=== PATIENT | male | born 1960 | race African-American/Black ===

== ENCOUNTER 2017-03-16 16:23 | Inpatient (IN) | payer OTHER ==
[2017-03-16 17:39] VITALS: BMI 44.1
--- NOTE | 2017-03-16 19:16 | HP ---
Admission [facility] Chief Complaint: I WANT TO GO TO REHAB Allergies/Adverse Reactions: Allergies Allergy/AdvReac Type Severity Reaction Status Date / Time acetaminophen [From Tylenol] Allergy Verified 03/16/17 19:13 aspirin Allergy Verified 03/16/17 19:42 ibuprofen Allergy Verified 03/16/17 19:13 History of Present Illness: 57 YEARS OLD MALE WITH LONG HISTORY OF COCAINE DEPENDENCE, PATIENT DENIES ABUSE OPIOID, "MIXED IN COCAINE", HAS HYPERTENSION, ASTHMA POSITIVE PPD DENIES MENTAL ILLNESS IS ADMITTED TO REHAB PATIENT REPORTS THAT LEFT HIP AND LEFT LEG PAIN X 20+ YEARS, NO TREATMENT, DOES NOT TAKE PAIN KILLER MEDICATION REPORT GENERAL BODY ACHE FROM "UP AND RUNNING" X 2 WEEKS STRAIGHT Exam Limitations: No Limitations - Ebola screening Have you traveled outside of the country in the last 21 days: No (N) Have you had contact with anyone from an Ebola affected area: No Have you been sick,other than usual withdrawal symptoms: No Do you have a fever: No - Review of Systems Constitutional: No Symptoms Reported EENT: reports: Cataracts (RIGHT EYE 11/2016) Respiratory: reports: SOB with Exertion Cardiac: reports: No Symptoms Reported GI: reports: No Symptoms Reported : reports: No Symptoms Reported Musculoskeletal: reports: Back Pain, Joint Pain, Muscle Pain, Neck Pain (PAIN X 20 YEARS, "I DO NOT TAKE ANY MEDICATION FOR PAIN") Integumentary: reports: No Symptoms Reported Neuro: reports: No Symptoms reported Endocrine: reports: No Symptoms Reported Hematology: reports: No Symptoms Reported Psychiatric: reports: No Sypmtoms Reported, Judgement Intact, Mood/Affect Appropiate, Orientated x3 Other Systems: Reviewed and Negative Patient History - Patient Medical History Hx Anemia: No Hx Asthma: Yes Hx Chronic Obstructive Pulmonary Disease (COPD): No Hx Cancer: No Hx Cardiac Disorders: No Hx Congestive Heart Failure: No Hx Hypertension: Yes Hx Hypercholesterolemia: No Hx Pacemaker: No HX Cerebrovascular Accident: No Hx Seizures: No Hx Dementia: No Hx Diabetes: No Hx Gastrointestinal Disorders: No Hx Liver Disease: No Hx Genitourinary Disorders: No Hx Sexually Transmitted Disorders: No Hx Thyroid Disease: No Hx Human Immunodeficiency Virus (HIV): No Hx Hepatitis C: No Hx Depression: Yes Hx Suicide Attempt: Yes (37 YEARS OLD LEFT FOOT IN FRONT OF TRAIN) Hx Bipolar Disorder: No Hx Schizophrenia: No - Patient Surgical History Past Surgical History: Yes Hx Neurologic Surgery: No Hx Cataract Extraction: Yes (RIGHT EYE 11/2016) Hx Cardiac Surgery: No Hx Lung Surgery: No Hx Breast Surgery: No Hx Breast Biopsy: No Hx Abdominal Surgery: No Hx Appendectomy: No Hx Cholecystectomy: Yes (07/2016) Hx Genitourinary Surgery: No Hx Orthopedic Surgery: Yes (LEFT FOOT AGE 37, RIGHT KNEE) Anesthesia Reaction: No - PPD History Previous Implant?: Yes Documented Results: Positive w/o proof Implanted On Prior R Admission?: No PPD to be Administered?: No - Smoking Cessation Smoking history: Never smoked Have you smoked in the past 12 months: No Hx Chewing Tobacco Use: No Initiated information on smoking cessation: No - Substance & Tx. History Hx Alcohol Use: No Hx Substance Use: Yes Substance Use Type: Cocaine Hx Substance Use Treatment: No - Substances Abused Cocaine Route: Smoking Frequency: Daily Amount used: 500$ Age of first use: 32 Date of Last Use: 03/15/17 Family Disease History - Family Disease History Family Disease History: Other: Father (), Mother (ARTHRITIS) Admission Physical Exam [facility] - Vital Signs Vital Signs: Vital Signs - 24 hr 03/16/17 17:36 Temperature 97.7 F Pulse Rate 101 H Respiratory 20 Rate Blood Pressure 162/105 - Physical General Appearance: Yes: No Apparent Distress, Appropriately Dressed, Obese HEENTM: Yes: Hearing grossly Normal, Normal ENT Inspection, Normocephalic, Normal Voice Respiratory: Yes: Chest Non-Tender, Lungs Clear, Normal Breath Sounds, No Respiratory Distress, No Accessory Muscle Use Neck: Yes: Supple, Trachea in good position Breast: Yes: Breasts Symetrical Cardiology: Yes: Regular Rhythm, S1, S2, Tachycardia (I USED COCAINE BEFORE GOT HERE) Abdominal: Yes: Normal Bowel Sounds, Non Tender, Soft Genitourinary: Yes: Within Normal Limits Back: Yes: Normal Inspection Musculoskeletal: Yes: full range of Motion, Gait Steady, Back pain (X 20 YEARS) , Muscle Pain (JOINTS PAIN X 20 YEARS) Extremities: Yes: Normal Inspection, Normal Range of Motion, Non-Tender Neurological: Yes: Fully Oriented, Alert, Motor Strength 5/5, Normal Mood/Affect , Normal Response Integumentary: Yes: Warm Lymphatic: Yes: Within Normal Limits - Diagnostic (1) Cocaine dependence, uncomplicated Current Visit: Yes Status: Acute (2) Hypertension Current Visit: Yes Status: Chronic Qualifiers: Hypertension type: essential hypertension Qualified Code(s): I10 - Essential (primary) hypertension (3) 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
[2017-03-16] MEDS ORDERED: MENTHOL/PHENOL 1 EACH UD MM PRN (19:25)
[2017-03-16] MEDS ORDERED: LOPERAMIDE HCL 2 MG CAPSULE PO PRN (19:25)
[2017-03-16] MEDS ORDERED: MAGNESIUM HYDROX 2400MG/30ML ORAL SUSPENSION 30 ML CUP PO PRN (19:25)
[2017-03-16] MEDS ORDERED: MAGNESIUM CITRATE 300 ML BOTTLE PO PRN (19:25)
[2017-03-16] MEDS: amLODIPine BESYLATE 5 MG TABLET (FP) PO SCH (23:20)
[2017-03-16] MEDS: THIAMINE HCL 100 MG TABLET (FP) PO SCH (23:20)
[2017-03-16] MEDS: CLOPIDOGREL BISULFATE 75 MG TABLET (FP) PO SCH (23:20)
[2017-03-16] MEDS: ENALAPRIL MALEATE 10 MG TABLET (FP) PO SCH (23:20)
[2017-03-16] MEDS: HYDROCHLOROTHIAZIDE 25 MG TABLET (FP) PO SCH (23:20)
[2017-03-17] MEDS ORDERED: ALBUTEROL SO4 6.7 GM HFA INHALER IH ONE (01:10)
[2017-03-17] MEDS: guaiFENesin/D-METHORPHAN HB 10 ML UNIT-DOSE CUPS PO PRN (01:11)
[2017-03-17] MEDS: ALBUTEROL SO4 6.7 GM HFA INHALER IH PRN (01:30)
--- NOTE | 2017-03-17 09:17 | HP ---
Psychiatrist Admission - Data Date of interview: 03/17/17 Admission source: [facility] Identifying data: This is the first admission to [address] [place] [address] inpatient rehabilitation for this 57 years old AA single male,resides alone,supported by PA. Medical History: Significant for HTN,BA,H/O R eye cataract removal in November 2016,H /O Cholecystectomy,R knee replacement. Psychiatric History: Reports one suicidal attempt 35 years ago by running in front of the train.Patient was admitted to [facility] after above mentioned incident for surgery (L ankle surgery).He was consulted by psychiatrist while in treatment ,dx with MDD.patient was placed on psychotropics.He was on meds on and off.Patient was also treated while in [facility] by [facility] and something else.Another treatment episode was when he was in [facility] about 10 years ago,dx with Bipolar disorder.Patient was treated by Wellbutrin with some response.He had no psychiatric follow up for a few years,not on any medications.Patient is willing to resrtart Wellbutrin XL 150 mg po am and Zyprexa 5 mg po hs. Physical/Sexual Abuse/Trauma History: denies Vital Signs: Vital Signs - 24 hr 03/16/17 03/16/17 03/17/17 17:36 23:30 03:30 Temperature 97.7 F 98.6 F Pulse Rate 101 H 93 H Respiratory 20 20 18 Rate Blood Pressure 162/105 155/104 03/17/17 06:40 Temperature 98.5 F Pulse Rate 87 Respiratory 20 Rate Blood Pressure 126/74 Allergies/Adverse Reactions: Allergies Allergy/AdvReac Type Severity Reaction Status Date / Time acetaminophen [From Tylenol] Allergy Verified 03/17/17 02:03 aspirin Allergy Verified 03/17/17 02:03 ibuprofen Allergy Verified 03/17/17 02:03 Date of last physical exam: 03/17/17 Concur with the findings of this exam: Yes - Substance Abuse/Tx History Hx Alcohol Use: Yes (socially) Hx Substance Use: Yes (using cocaine since 32 yo,spending $500 on binge) Substance Use Type: Cocaine Hx Substance Use Treatment: Yes (this is first custodial inpatient treatment) - Admission Criteria Previous failed treatment: Yes Poor recovery environment: Yes Comorbidities: Yes Lacks judgement: Yes Mental Status Exam - Mental Status Exam Alert and Oriented to: Time, Place, Person Cognitive Function: Grossly Intact Patient Appearance: Unkempt Mood: Depressed, Sad Affect: Constricted Patient Behavior: Cooperative Speech Pattern: Clear Voice Loudness: Normal Thought Process: Goal Oriented Thought Disorder: Being Controlled Hallucinations: Denies Suicidal Ideation: Denies Homicidal Ideation: Denies Insight/Judgement: Fair Sleep: Fair Appetite: Good Muscle strength/Tone: Normal Gait/Station: Antalgic (Patient ambulates with cane due to r knee pain.) Psychiatric Findings - Problem List ([facility] 1, 2,3) (1) Cocaine dependence, uncomplicated Current Visit: Yes Status: Chronic (2) Hypertension Current Visit: Yes Status: Chronic Qualifiers: Hypertension type: essential hypertension Qualified Code(s): I10 - Essential (primary) hypertension (3) Bronchial asthma Current Visit: Yes Status: Chronic (4) Bipolar disorder Current Visit: Yes Status: Chronic - Initial Treatment Plan Initial Treatment Plan: Restart Wellbutrin XL 150 mg po daily and Zyprexa 5 mg po hs.Will monitor progress.
[2017-03-17] MEDS: PRENATAL VITAMINS W/ FOLIC ACID TABLET (FP) PO SCH (10:17)
[2017-03-17] MEDS: ENALAPRIL MALEATE 10 MG TABLET (FP) PO SCH (10:17)
[2017-03-17] MEDS: amLODIPine BESYLATE 5 MG TABLET (FP) PO SCH (10:17)
[2017-03-17] MEDS: HYDROCHLOROTHIAZIDE 25 MG TABLET (FP) PO SCH (10:18)
[2017-03-17 10:35] LABS: INR 0.99 (0.82-1.09); PROTHROMBIN TIME (PATIENT) 10.9 SEC (9.98-11.88)
[2017-03-17 10:39] LABS: MCH 30.7 pg (25.7-33.7); MCHC 32.9 g/dl (32.0-35.9); MEAN CELL VOLUME 93.2 fl (80-96); MEAN PLT VOLUME 9.6 fl (7.5-11.1); PLATELET COUNT 207 K/MM3 (134-434); RDW 14.8 % (11.9-15.9); WHITE BLOOD COUNT 9.3 K/mm3 (4.0-10.0)
[2017-03-17] MEDS: CLOPIDOGREL BISULFATE 75 MG TABLET (FP) PO SCH (10:40)
[2017-03-17] MEDS ORDERED: LIDOCAINE 5% TOPICAL PATCH TP SCH (12:00)
[2017-03-17] MEDS: LIDOCAINE PATCH REMOVAL MC SCH (14:21)
[2017-03-17] MEDS: LIDOCAINE 5% TOPICAL PATCH TP SCH (14:22)
[2017-03-17 14:56] LABS: ALBUMIN 3.1 g/dl (3.4-5.0); ANION GAP 6 (8-16); CALCIUM 8.8 mg/dL (8.5-10.1); CO2 31 mmol/L (21-32); GLUCOSE,RANDOM 92 mg/dL (74-106)
[2017-03-17 15:00] LABS: ALK PHOS 77 U/L (45-117); BILIRUBIN,TOTAL 0.3 mg/dL (0.2-1.0); CREATININE 1.4 mg/dL (0.7-1.3); SGOT/AST 24 U/L (15-37); SGPT/ALT 23 U/L (12-78)
--- NOTE | 2017-03-17 20:01 | EKG ---
Test Reason : Blood Pressure : / mmHG Vent. Rate : 096 BPM Atrial Rate : 096 BPM P-R Int : 138 ms QRS Dur : 092 ms QT Int : 368 ms P-R-T Axes : 055 -03 017 degrees QTc Int : 464 ms NORMAL SINUS RHYTHM CANNOT RULE OUT ANTERIOR INFARCT , AGE UNDETERMINED ABNORMAL ECG NO PREVIOUS ECGS AVAILABLE Confirmed by BRISSA TRONCOSO MD ([id number]) on 03/17/2017 8:00:51 PM Referred By: Guillermina Kaye Confirmed By:BRISSA TRONCOSO MD
[2017-03-17] MEDS: THIAMINE HCL 100 MG TABLET (FP) PO SCH (21:09)
[2017-03-17] MEDS: OLANZapine 5 MG TABLET PO SCH (21:09)
[2017-03-17] MEDS ORDERED: LIDOCAINE PATCH REMOVAL MC SCH (22:00)
--- NOTE | 2017-03-18 01:02 | PN ---
[facility] Progress Note Note: k3.3 hypokalemia k dur 20 meq po daily for 5 days
[2017-03-18] MEDS ORDERED: LIDOCAINE 5% TOPICAL PATCH TP SCH (10:00)
[2017-03-18] MEDS: PRENATAL VITAMINS W/ FOLIC ACID TABLET (FP) PO SCH (10:22)
[2017-03-18] MEDS: ENALAPRIL MALEATE 10 MG TABLET (FP) PO SCH (10:22)
[2017-03-18] MEDS: POTASSIUM CHLORIDE TABS 20 MEQ TABLET.ER (FP) PO SCH (10:22)
[2017-03-18] MEDS: HYDROCHLOROTHIAZIDE 25 MG TABLET (FP) PO SCH (10:22)
[2017-03-18] MEDS: amLODIPine BESYLATE 5 MG TABLET (FP) PO SCH (10:22)
[2017-03-18] MEDS: CLOPIDOGREL BISULFATE 75 MG TABLET (FP) PO SCH (10:22)
[2017-03-18] MEDS: LIDOCAINE PATCH REMOVAL MC SCH (10:23)
[2017-03-18] MEDS: LIDOCAINE 5% TOPICAL PATCH TP SCH (10:23)
[2017-03-18] MEDS: THIAMINE HCL 100 MG TABLET (FP) PO SCH (21:30)
[2017-03-18] MEDS: OLANZapine 5 MG TABLET PO SCH (21:30)
[2017-03-19] MEDS: CLOPIDOGREL BISULFATE 75 MG TABLET (FP) PO SCH (09:57)
[2017-03-19] MEDS: amLODIPine BESYLATE 5 MG TABLET (FP) PO SCH (09:57)
[2017-03-19] MEDS: ENALAPRIL MALEATE 10 MG TABLET (FP) PO SCH (09:57)
[2017-03-19] MEDS: HYDROCHLOROTHIAZIDE 25 MG TABLET (FP) PO SCH (09:57)
[2017-03-19] MEDS: PRENATAL VITAMINS W/ FOLIC ACID TABLET (FP) PO SCH (09:57)
[2017-03-19] MEDS: LIDOCAINE PATCH REMOVAL MC SCH (09:58)
[2017-03-19] MEDS: LIDOCAINE 5% TOPICAL PATCH TP SCH (09:58)
[2017-03-19] MEDS: POTASSIUM CHLORIDE TABS 20 MEQ TABLET.ER (FP) PO SCH (10:00)
[2017-03-19 10:21] LABS: URINE APPEARANCE CLEAR; URINE BILIRUBIN NEGATIVE (NEGATIVE); URINE BLOOD NEGATIVE (NEGATIVE); URINE COLOR LTYELLOW; URINE GLUCOSE (UA) NEGATIVE (NEGATIVE); URINE KETONE NEGATIVE (NEGATIVE); URINE LEUK ESTERASE NEGATIVE (NEGATIVE); URINE NITRITE NEGATIVE (NEGATIVE); URINE PROTEIN NEGATIVE (NEGATIVE); URINE UROBILINOGEN NEGATIVE mg/dL (0.2-1.0)
[2017-03-19] MEDS: OLANZapine 5 MG TABLET PO SCH (21:32)
[2017-03-19] MEDS: THIAMINE HCL 100 MG TABLET (FP) PO SCH (21:32)
[2017-03-20] MEDS: PRENATAL VITAMINS W/ FOLIC ACID TABLET (FP) PO SCH (10:10)
[2017-03-20] MEDS: CLOPIDOGREL BISULFATE 75 MG TABLET (FP) PO SCH (10:10)
[2017-03-20] MEDS: ENALAPRIL MALEATE 10 MG TABLET (FP) PO SCH (10:10)
[2017-03-20] MEDS: HYDROCHLOROTHIAZIDE 25 MG TABLET (FP) PO SCH (10:11)
[2017-03-20] MEDS: POTASSIUM CHLORIDE TABS 20 MEQ TABLET.ER (FP) PO SCH (10:11)
[2017-03-20] MEDS: LIDOCAINE 5% TOPICAL PATCH TP SCH (10:11)
[2017-03-20] MEDS: amLODIPine BESYLATE 5 MG TABLET (FP) PO SCH (10:11)
[2017-03-20] MEDS: LIDOCAINE PATCH REMOVAL MC SCH (10:12)
[2017-03-20] MEDS: ALBUTEROL SO4 6.7 GM HFA INHALER IH PRN ×3 (10:13→23:55)
[2017-03-20] MEDS: OLANZapine 5 MG TABLET PO SCH (21:16)
[2017-03-20] MEDS: THIAMINE HCL 100 MG TABLET (FP) PO SCH (21:16)
[2017-03-20] MEDS: guaiFENesin/D-METHORPHAN HB 10 ML UNIT-DOSE CUPS PO PRN (23:43)
[2017-03-21] MEDS: diphenhydrAMINE HCL 50 MG CAPSULE PO PRN ×2 (00:21→21:32)
[2017-03-21] MEDS: guaiFENesin/D-METHORPHAN HB 10 ML UNIT-DOSE CUPS PO PRN (04:30)
[2017-03-21] MEDS: ALBUTEROL SO4 6.7 GM HFA INHALER IH PRN ×2 (04:30→21:31)
[2017-03-21] MEDS: ENALAPRIL MALEATE 10 MG TABLET (FP) PO SCH (10:20)
[2017-03-21] MEDS: CLOPIDOGREL BISULFATE 75 MG TABLET (FP) PO SCH (10:20)
[2017-03-21] MEDS: POTASSIUM CHLORIDE TABS 20 MEQ TABLET.ER (FP) PO SCH (10:20)
[2017-03-21] MEDS: LIDOCAINE 5% TOPICAL PATCH TP SCH (10:20)
[2017-03-21] MEDS: amLODIPine BESYLATE 5 MG TABLET (FP) PO SCH (10:20)
[2017-03-21] MEDS: HYDROCHLOROTHIAZIDE 25 MG TABLET (FP) PO SCH (10:20)
[2017-03-21] MEDS: PRENATAL VITAMINS W/ FOLIC ACID TABLET (FP) PO SCH (10:20)
[2017-03-21] MEDS: LIDOCAINE PATCH REMOVAL MC SCH (10:22)
[2017-03-21] MEDS: OLANZapine 5 MG TABLET PO SCH (21:31)
[2017-03-21] MEDS: THIAMINE HCL 100 MG TABLET (FP) PO SCH (21:31)
[2017-03-22] MEDS: PRENATAL VITAMINS W/ FOLIC ACID TABLET (FP) PO SCH (10:19)
[2017-03-22] MEDS: amLODIPine BESYLATE 5 MG TABLET (FP) PO SCH (10:19)
[2017-03-22] MEDS: HYDROCHLOROTHIAZIDE 25 MG TABLET (FP) PO SCH (10:19)
[2017-03-22] MEDS: ENALAPRIL MALEATE 10 MG TABLET (FP) PO SCH (10:19)
[2017-03-22] MEDS: POTASSIUM CHLORIDE TABS 20 MEQ TABLET.ER (FP) PO SCH (10:19)
[2017-03-22] MEDS: hydrOXYzine PAMOATE 50 MG CAPSULE (FP) PO PRN (10:20)
[2017-03-22] MEDS: CLOPIDOGREL BISULFATE 75 MG TABLET (FP) PO SCH (10:20)
[2017-03-22] MEDS: LIDOCAINE PATCH REMOVAL MC SCH ×2 (10:21→10:22)
[2017-03-22] MEDS: LIDOCAINE 5% TOPICAL PATCH TP SCH (10:23)
[2017-03-22] MEDS: OLANZapine 5 MG TABLET PO SCH ×2 (10:41→21:41)
--- NOTE | 2017-03-22 10:53 | PN ---
Psychiatric Progress Note Vital Signs: Vital Signs Period Temp Pulse Resp BP Sys/Hanson Pulse Ox Last 24 Hr 97.6 F 84 18-18 139/93 Date of Session: 03/22/17 Chief Complaint:: "he is anxious" HPI: Patient is a 57 year old male with history of cocaine dependence comorbid Bipolar disorder. ROS: HTN, bronchial asthma,, Lt HIp, Knee and Foot surgery 20 years back,. Cataract Rt eye surgery on 2014 ,Cholecystecomy on 2015. Current Medications: Active Medications Generic Name Dose Route Start Last Admin Trade Name Freq PRN Reason Stop Dose Admin Al Hydroxide/Mg Hydroxide 30 ml 03/16/17 19:25 Mylanta Oral Suspension - PO Q6H PRN DYSPEPSIA Albuterol Sulfate 2 puff 03/17/17 01:23 03/21/17 21:31 Ventolin Hfa Inhaler - IH 2 puff Q4H PRN Administration SHORT OF BREATH/WHEEZING Amlodipine Besylate 5 mg 03/16/17 21:30 03/22/17 10:19 Norvasc - PO 5 mg DAILY MARISSA Administration Bupropion HCl 150 mg 03/17/17 14:15 03/22/17 10:19 Wellbutrin Xl - PO 150 mg DAILY MARISSA Administration Clopidogrel Bisulfate 75 mg 03/16/17 21:30 03/22/17 10:20 Plavix - PO 75 mg DAILY MARISSA Administration Diphenhydramine HCl 50 mg 03/16/17 19:25 03/21/17 21:32 Benadryl - PO 50 mg HSMR1 PRN Administration INSOMNIA Enalapril Maleate 10 mg 03/16/17 21:30 03/22/17 10:19 Vasotec - PO 10 mg DAILY MARISSA Administration Eucalyptus/Menthol/Phenol/Sorbitol 1 each 03/16/17 19:25 Cepastat Lozenge - MM Q4H PRN SORE THROAT Gabapentin 100 mg 03/22/17 14:00 Neurontin - PO TID MARISSA Guaifenesin 10 ml 03/16/17 19:25 03/21/17 04:30 Robitussin Dm - PO 10 ml Q6H PRN Administration COUGH Hydrochlorothiazide 25 mg 03/16/17 21:30 03/22/17 10:19 Hctz - PO 25 mg DAILY MARISSA Administration Hydroxyzine Pamoate 50 mg 03/16/17 19:25 03/22/17 10:20 Vistaril - PO 50 mg Q4H PRN Administration AGITATION Lidocaine 2 patch 03/17/17 14:15 03/22/17 10:23 Lidoderm Patch - TP 2 patch DAILY MARISSA Administration Loperamide HCl 4 mg 03/16/17 19:25 Imodium - PO Q6H PRN DIARRHEA Magnesium Citrate 300 ml 03/16/17 19:25 Citroma - PO Q48H PRN CONSTIPATION Magnesium Hydroxide 30 ml 03/16/17 19:25 Milk Of Magnesia - PO DAILY PRN CONSTIPATION Miscellaneous 2 each 03/17/17 10:00 03/22/17 10:22 Lidoderm Patch Removal MC 2 each DAILY@1000 MARISSA Administration Olanzapine 5 mg 03/17/17 22:00 03/21/17 21:31 Zyprexa - PO 5 mg HS MARISSA Administration Olanzapine 5 mg 03/22/17 10:45 Zyprexa - PO DAILY MARISSA Potassium Chloride 20 meq 03/18/17 10:00 03/22/17 10:19 K-Dur - PO 03/22/17 23:59 20 meq DAILY MARISSA Administration Multivit/Folic Acid/Iron 1 tab 03/17/17 10:00 03/22/17 10:19 Vitamins (Sjr) - PO 1 tab DAILY MARISSA Administration Pseudoephedrine/Triprolidine 1 combo 03/16/17 19:25 Actifed - PO TID PRN NASAL CONGESTION Thiamine HCl 100 mg 03/16/17 22:00 03/21/17 21:31 Vitamin B1 - PO 100 mg HS MARISSA Administration Current Side Effect: No Lab tests ordered: No Provider note:: Reviewed the chart, admission note appreciated, met with the patient, patient having a difficult time to adjust to the unit, he reports that he relapsed only once and currently on parole. "My PO send me here, I don' t want to be here". Reports he was incarcerated 8 years, relased 3 weeks ago, lives with his mother. Patient is visibly upset and angry that he has to be here. Patient reports was on different psychotropics at diferrent time in his life, Seroquel, Haldol Risperdal "I had a bad reaction". Reviewed medications with the patient, will add Zyprexa 5 mg po am, add Gabapentin 100 mg po tid. His primary conselor Ms.Dottie Stone stepped in and suggested patient to call his PO, then patient told he needs to talk to his mother. Patient was recommended to take medications and follow with his conselor to make a call. Total face to face time:: 35 Mental Status Exam - Mental Status Exam Alert and Oriented to: Place, Person Cognitive Function: Grossly Intact Patient Appearance: Well Groomed Mood: Angry, Anxious, Irritable Affect: Mood Congruent Patient Behavior: Cooperative Speech Pattern: Clear, Appropriate Voice Loudness: Normal Thought Process: Goal Oriented Thought Disorder: Not Present Hallucinations: Auditory (on and off) Suicidal Ideation: Denies Homicidal Ideation: None Insight/Judgement: Fair Sleep: Fair Appetite: Fair Muscle strength/Tone: Normal Gait/Station: Normal Psychiatric Treatment Plan - Problem List (1) 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
[2017-03-22] MEDS ORDERED: GABAPENTIN 100 MG CAPSULE (FP) PO ONE (11:00)
[2017-03-22] MEDS: guaiFENesin/D-METHORPHAN HB 10 ML UNIT-DOSE CUPS PO PRN (11:28)
[2017-03-22] MEDS: GABAPENTIN 100 MG CAPSULE (FP) PO SCH ×2 (14:58→21:41)
[2017-03-22] MEDS: diphenhydrAMINE HCL 50 MG CAPSULE PO PRN (21:41)
[2017-03-22] MEDS: THIAMINE HCL 100 MG TABLET (FP) PO SCH (21:41)
[2017-03-23] MEDS: GABAPENTIN 100 MG CAPSULE (FP) PO SCH ×3 (06:43→21:36)
[2017-03-23] MEDS: HYDROCHLOROTHIAZIDE 25 MG TABLET (FP) PO SCH (10:30)
[2017-03-23] MEDS: amLODIPine BESYLATE 5 MG TABLET (FP) PO SCH (10:30)
[2017-03-23] MEDS: CLOPIDOGREL BISULFATE 75 MG TABLET (FP) PO SCH (10:30)
[2017-03-23] MEDS: PRENATAL VITAMINS W/ FOLIC ACID TABLET (FP) PO SCH (10:30)
[2017-03-23] MEDS: ENALAPRIL MALEATE 10 MG TABLET (FP) PO SCH (10:30)
[2017-03-23] MEDS: OLANZapine 5 MG TABLET PO SCH ×2 (10:30→21:36)
[2017-03-23] MEDS: LIDOCAINE 5% TOPICAL PATCH TP SCH (10:31)
[2017-03-23] MEDS: ALBUTEROL SO4 6.7 GM HFA INHALER IH PRN (10:31)
[2017-03-23] MEDS: guaiFENesin/D-METHORPHAN HB 10 ML UNIT-DOSE CUPS PO PRN (10:33)
[2017-03-23] MEDS: LIDOCAINE PATCH REMOVAL MC SCH (10:33)
[2017-03-23] MEDS: diphenhydrAMINE HCL 50 MG CAPSULE PO PRN (21:36)
[2017-03-23] MEDS: THIAMINE HCL 100 MG TABLET (FP) PO SCH (21:36)
[2017-03-24] MEDS: GABAPENTIN 100 MG CAPSULE (FP) PO SCH ×3 (07:25→21:43)
[2017-03-24] MEDS: PRENATAL VITAMINS W/ FOLIC ACID TABLET (FP) PO SCH (10:13)
[2017-03-24] MEDS: CLOPIDOGREL BISULFATE 75 MG TABLET (FP) PO SCH (10:13)
[2017-03-24] MEDS: amLODIPine BESYLATE 5 MG TABLET (FP) PO SCH (10:13)
[2017-03-24] MEDS: OLANZapine 5 MG TABLET PO SCH ×2 (10:13→21:43)
[2017-03-24] MEDS: LIDOCAINE 5% TOPICAL PATCH TP SCH (10:13)
[2017-03-24] MEDS: HYDROCHLOROTHIAZIDE 25 MG TABLET (FP) PO SCH (10:13)
[2017-03-24] MEDS: ENALAPRIL MALEATE 10 MG TABLET (FP) PO SCH (10:13)
[2017-03-24] MEDS: LIDOCAINE PATCH REMOVAL MC SCH (10:14)
[2017-03-24] MEDS: THIAMINE HCL 100 MG TABLET (FP) PO SCH (21:43)
[2017-03-24] MEDS: diphenhydrAMINE HCL 50 MG CAPSULE PO PRN (21:43)
[2017-03-25] MEDS: GABAPENTIN 100 MG CAPSULE (FP) PO SCH ×3 (06:10→21:25)
[2017-03-25] MEDS: CLOPIDOGREL BISULFATE 75 MG TABLET (FP) PO SCH (10:19)
[2017-03-25] MEDS: amLODIPine BESYLATE 5 MG TABLET (FP) PO SCH (10:19)
[2017-03-25] MEDS: ENALAPRIL MALEATE 10 MG TABLET (FP) PO SCH (10:19)
[2017-03-25] MEDS: HYDROCHLOROTHIAZIDE 25 MG TABLET (FP) PO SCH (10:19)
[2017-03-25] MEDS: LIDOCAINE 5% TOPICAL PATCH TP SCH (10:19)
[2017-03-25] MEDS: PRENATAL VITAMINS W/ FOLIC ACID TABLET (FP) PO SCH (10:19)
[2017-03-25] MEDS: OLANZapine 5 MG TABLET PO SCH ×2 (10:21→21:25)
[2017-03-25] MEDS: LIDOCAINE PATCH REMOVAL MC SCH (11:03)
[2017-03-25] MEDS: diphenhydrAMINE HCL 50 MG CAPSULE PO PRN (21:25)
[2017-03-25] MEDS: THIAMINE HCL 100 MG TABLET (FP) PO SCH (21:25)
[2017-03-25] MEDS ORDERED: LIDOCAINE PATCH REMOVAL MC SCH (22:00)
[2017-03-25] MEDS: guaiFENesin/D-METHORPHAN HB 10 ML UNIT-DOSE CUPS PO PRN (23:36)
[2017-03-26] MEDS: GABAPENTIN 100 MG CAPSULE (FP) PO SCH ×3 (06:06→21:21)
[2017-03-26] MEDS: HYDROCHLOROTHIAZIDE 25 MG TABLET (FP) PO SCH (10:11)
[2017-03-26] MEDS: amLODIPine BESYLATE 5 MG TABLET (FP) PO SCH (10:11)
[2017-03-26] MEDS: CLOPIDOGREL BISULFATE 75 MG TABLET (FP) PO SCH (10:12)
[2017-03-26] MEDS: OLANZapine 5 MG TABLET PO SCH ×2 (10:12→21:22)
[2017-03-26] MEDS: PRENATAL VITAMINS W/ FOLIC ACID TABLET (FP) PO SCH (10:12)
[2017-03-26] MEDS: ENALAPRIL MALEATE 10 MG TABLET (FP) PO SCH (10:13)
[2017-03-26] MEDS: LIDOCAINE 5% TOPICAL PATCH TP SCH (10:14)
[2017-03-26] MEDS: guaiFENesin/D-METHORPHAN HB 10 ML UNIT-DOSE CUPS PO PRN (19:38)
[2017-03-26] MEDS: ALBUTEROL SO4 6.7 GM HFA INHALER IH PRN (19:38)
[2017-03-26] MEDS: THIAMINE HCL 100 MG TABLET (FP) PO SCH (21:22)
[2017-03-26] MEDS: diphenhydrAMINE HCL 50 MG CAPSULE PO PRN (21:22)
[2017-03-27] MEDS: GABAPENTIN 100 MG CAPSULE (FP) PO SCH ×3 (06:05→22:00)
[2017-03-27] MEDS: amLODIPine BESYLATE 5 MG TABLET (FP) PO SCH (09:48)
[2017-03-27] MEDS: CLOPIDOGREL BISULFATE 75 MG TABLET (FP) PO SCH (09:48)
[2017-03-27] MEDS: LIDOCAINE 5% TOPICAL PATCH TP SCH (09:48)
[2017-03-27] MEDS: hydrOXYzine PAMOATE 50 MG CAPSULE (FP) PO PRN (09:48)
[2017-03-27] MEDS: OLANZapine 5 MG TABLET PO SCH ×2 (09:48→22:00)
[2017-03-27] MEDS: ENALAPRIL MALEATE 10 MG TABLET (FP) PO SCH (09:48)
[2017-03-27] MEDS: PRENATAL VITAMINS W/ FOLIC ACID TABLET (FP) PO SCH (09:48)
[2017-03-27] MEDS: HYDROCHLOROTHIAZIDE 25 MG TABLET (FP) PO SCH (09:48)
[2017-03-27] MEDS: THIAMINE HCL 100 MG TABLET (FP) PO SCH (22:00)
[2017-03-27] MEDS: diphenhydrAMINE HCL 50 MG CAPSULE PO PRN (22:00)
[2017-03-28] MEDS: GABAPENTIN 100 MG CAPSULE (FP) PO SCH ×3 (07:08→21:34)
[2017-03-28] MEDS: hydrOXYzine PAMOATE 50 MG CAPSULE (FP) PO PRN ×2 (10:08→14:17)
[2017-03-28] MEDS: ENALAPRIL MALEATE 10 MG TABLET (FP) PO SCH (10:08)
[2017-03-28] MEDS: amLODIPine BESYLATE 5 MG TABLET (FP) PO SCH (10:08)
[2017-03-28] MEDS: OLANZapine 5 MG TABLET PO SCH ×2 (10:08→21:34)
[2017-03-28] MEDS: CLOPIDOGREL BISULFATE 75 MG TABLET (FP) PO SCH (10:08)
[2017-03-28] MEDS: HYDROCHLOROTHIAZIDE 25 MG TABLET (FP) PO SCH (10:08)
[2017-03-28] MEDS: LIDOCAINE 5% TOPICAL PATCH TP SCH (10:08)
[2017-03-28] MEDS: PRENATAL VITAMINS W/ FOLIC ACID TABLET (FP) PO SCH (10:08)
[2017-03-28] MEDS: guaiFENesin/D-METHORPHAN HB 10 ML UNIT-DOSE CUPS PO PRN ×2 (11:11→19:41)
[2017-03-28] MEDS: ALBUTEROL SO4 6.7 GM HFA INHALER IH PRN ×2 (11:13→21:35)
[2017-03-28] MEDS: THIAMINE HCL 100 MG TABLET (FP) PO SCH (21:34)
[2017-03-28] MEDS: diphenhydrAMINE HCL 50 MG CAPSULE PO PRN (21:34)
[2017-03-29] MEDS: guaiFENesin/D-METHORPHAN HB 10 ML UNIT-DOSE CUPS PO PRN (02:20)
[2017-03-29] MEDS: GABAPENTIN 100 MG CAPSULE (FP) PO SCH ×3 (06:13→21:38)
[2017-03-29] MEDS: CLOPIDOGREL BISULFATE 75 MG TABLET (FP) PO SCH (10:27)
[2017-03-29] MEDS: PRENATAL VITAMINS W/ FOLIC ACID TABLET (FP) PO SCH (10:27)
[2017-03-29] MEDS: HYDROCHLOROTHIAZIDE 25 MG TABLET (FP) PO SCH (10:27)
[2017-03-29] MEDS: OLANZapine 5 MG TABLET PO SCH ×2 (10:28→21:37)
[2017-03-29] MEDS: amLODIPine BESYLATE 5 MG TABLET (FP) PO SCH (10:28)
[2017-03-29] MEDS: LIDOCAINE 5% TOPICAL PATCH TP SCH (10:28)
[2017-03-29] MEDS: ENALAPRIL MALEATE 10 MG TABLET (FP) PO SCH (10:28)
[2017-03-29] MEDS: diphenhydrAMINE HCL 50 MG CAPSULE PO PRN (21:38)
[2017-03-29] MEDS: THIAMINE HCL 100 MG TABLET (FP) PO SCH (21:38)
[2017-03-30] MEDS: GABAPENTIN 100 MG CAPSULE (FP) PO SCH ×4 (06:03→21:27)
[2017-03-30] MEDS: CLOPIDOGREL BISULFATE 75 MG TABLET (FP) PO SCH (10:21)
[2017-03-30] MEDS: HYDROCHLOROTHIAZIDE 25 MG TABLET (FP) PO SCH (10:21)
[2017-03-30] MEDS: PRENATAL VITAMINS W/ FOLIC ACID TABLET (FP) PO SCH (10:21)
[2017-03-30] MEDS: amLODIPine BESYLATE 5 MG TABLET (FP) PO SCH (10:21)
[2017-03-30] MEDS: LIDOCAINE 5% TOPICAL PATCH TP SCH (10:21)
[2017-03-30] MEDS: ENALAPRIL MALEATE 10 MG TABLET (FP) PO SCH (10:22)
[2017-03-30] MEDS: OLANZapine 5 MG TABLET PO SCH ×2 (10:22→21:30)
[2017-03-30] MEDS: hydrOXYzine PAMOATE 50 MG CAPSULE (FP) PO PRN (14:08)
--- NOTE | 2017-03-30 14:25 | PN ---
Psychiatric Progress Note Vital Signs: Vital Signs Period Temp Pulse Resp BP Sys/Hanson Pulse Ox Last 24 Hr 97.7 F 85-93 18-20 134-135/84-87 Date of Session: 03/30/17 Chief Complaint:: progress update HPI: Patient addressing cocaine dependence comorbid Bipolar disorder. ROS: HTN, bronchial asthma,, Lt HIp, Knee and Foot surgery 20 years back,. Cataract Rt eye surgery on 2014 ,Cholecystecomy on 2016. Current Medications: Active Medications Generic Name Dose Route Start Last Admin Trade Name Freq PRN Reason Stop Dose Admin Al Hydroxide/Mg Hydroxide 30 ml 03/16/17 19:25 Mylanta Oral Suspension - PO Q6H PRN DYSPEPSIA Albuterol Sulfate 2 puff 03/17/17 01:23 03/28/17 21:35 Ventolin Hfa Inhaler - IH 2 puff Q4H PRN Administration SHORT OF BREATH/WHEEZING Amlodipine Besylate 5 mg 03/16/17 21:30 03/30/17 10:21 Norvasc - PO 5 mg DAILY MARISSA Administration Bupropion HCl 150 mg 03/17/17 14:15 03/30/17 10:22 Wellbutrin Xl - PO 150 mg DAILY MARISSA Administration Clopidogrel Bisulfate 75 mg 03/16/17 21:30 03/30/17 10:21 Plavix - PO 75 mg DAILY MARISSA Administration Diphenhydramine HCl 50 mg 03/16/17 19:25 03/29/17 21:38 Benadryl - PO 50 mg HSMR1 PRN Administration INSOMNIA Enalapril Maleate 10 mg 03/16/17 21:30 03/30/17 10:22 Vasotec - PO 10 mg DAILY MARISSA Administration Eucalyptus/Menthol/Phenol/Sorbitol 1 each 03/16/17 19:25 Cepastat Lozenge - MM Q4H PRN SORE THROAT Gabapentin 300 mg 03/30/17 14:05 Neurontin - PO TID MARISSA Guaifenesin 10 ml 03/16/17 19:25 03/29/17 02:20 Robitussin Dm - PO 10 ml Q6H PRN Administration COUGH Hydrochlorothiazide 25 mg 03/16/17 21:30 03/30/17 10:21 Hctz - PO 25 mg DAILY MARISSA Administration Hydroxyzine Pamoate 50 mg 03/16/17 19:25 03/30/17 14:08 Vistaril - PO 50 mg Q4H PRN Administration AGITATION Lidocaine 2 patch 03/26/17 10:00 03/30/17 10:21 Lidoderm Patch - TP 2 patch DAILY MARISSA Administration Loperamide HCl 4 mg 03/16/17 19:25 Imodium - PO Q6H PRN DIARRHEA Magnesium Citrate 300 ml 03/16/17 19:25 Citroma - PO Q48H PRN CONSTIPATION Magnesium Hydroxide 30 ml 03/16/17 19:25 Milk Of Magnesia - PO DAILY PRN CONSTIPATION Olanzapine 5 mg 03/17/17 22:00 03/29/17 21:37 Zyprexa - PO 5 mg HS MARISSA Administration Olanzapine 5 mg 03/22/17 11:00 03/30/17 10:22 Zyprexa - PO 5 mg DAILY MARISSA Administration Olanzapine 10 mg 03/30/17 22:00 Zyprexa - PO HS MARISSA Multivit/Folic Acid/Iron 1 tab 03/17/17 10:00 03/30/17 10:21 Vitamins (Sjr) - PO 1 tab DAILY MARISSA Administration Pseudoephedrine/Triprolidine 1 combo 03/16/17 19:25 Actifed - PO TID PRN NASAL CONGESTION Thiamine HCl 100 mg 03/16/17 22:00 03/29/17 21:38 Vitamin B1 - PO 100 mg HS MARISSA Administration Current Side Effect: No Lab tests ordered: No Lab tests reviewed: Yes Provider note:: Patient reports feels anxious, irritable and angry, "I don't want to stay here, this place makes me angry". Patient visibly upset, he admits to hear voices on and off, reviewed medications with the patient will increase Gabapentin 300 mg po tid add Zyprexa 10 mg po hs, continue to monitor progress. Total face to face time:: 15 Mental Status Exam - Mental Status Exam Alert and Oriented to: Time, Place, Person Cognitive Function: Good Patient Appearance: Well Groomed Mood: Angry, Anxious, Irritable Affect: Mood Congruent Patient Behavior: Cooperative Speech Pattern: Clear Voice Loudness: Normal Thought Process: Goal Oriented Thought Disorder: Not Present Hallucinations: Auditory (on and off) Suicidal Ideation: Denies Homicidal Ideation: Denies Insight/Judgement: Fair Sleep: Poorly Appetite: Good Muscle strength/Tone: Severe Hypertonicity Gait/Station: Normal Psychiatric Treatment Plan - Problem List (1) 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
[2017-03-30] MEDS: THIAMINE HCL 100 MG TABLET (FP) PO SCH (21:27)
[2017-03-30] MEDS: OLANZapine 10 MG TABLET PO SCH (21:28)
[2017-03-30] MEDS: diphenhydrAMINE HCL 50 MG CAPSULE PO PRN (21:28)
[2017-03-30] MEDS: P-EPHED 60MG/TRIPROLIDI 2.5MG TABLET PO PRN (21:30)
[2017-03-31] MEDS: GABAPENTIN 100 MG CAPSULE (FP) PO SCH ×3 (06:10→21:36)
[2017-03-31] MEDS: PRENATAL VITAMINS W/ FOLIC ACID TABLET (FP) PO SCH (10:00)
[2017-03-31] MEDS: ENALAPRIL MALEATE 10 MG TABLET (FP) PO SCH (10:00)
[2017-03-31] MEDS: CLOPIDOGREL BISULFATE 75 MG TABLET (FP) PO SCH (10:00)
[2017-03-31] MEDS: hydrOXYzine PAMOATE 50 MG CAPSULE (FP) PO PRN (10:00)
[2017-03-31] MEDS: OLANZapine 5 MG TABLET PO SCH ×2 (10:01→21:36)
[2017-03-31] MEDS: HYDROCHLOROTHIAZIDE 25 MG TABLET (FP) PO SCH (10:01)
[2017-03-31] MEDS: LIDOCAINE 5% TOPICAL PATCH TP SCH (10:01)
[2017-03-31] MEDS: amLODIPine BESYLATE 5 MG TABLET (FP) PO SCH (10:01)
[2017-03-31] MEDS: P-EPHED 60MG/TRIPROLIDI 2.5MG TABLET PO PRN ×2 (12:12→19:02)
[2017-03-31] MEDS: OLANZapine 10 MG TABLET PO SCH (21:36)
[2017-03-31] MEDS: THIAMINE HCL 100 MG TABLET (FP) PO SCH (21:36)
[2017-03-31] MEDS: diphenhydrAMINE HCL 50 MG CAPSULE PO PRN (21:37)
[2017-03-31] MEDS: guaiFENesin/D-METHORPHAN HB 10 ML UNIT-DOSE CUPS PO PRN (21:38)
[2017-04-01] MEDS: GABAPENTIN 100 MG CAPSULE (FP) PO SCH ×3 (06:12→21:38)
[2017-04-01] MEDS: PRENATAL VITAMINS W/ FOLIC ACID TABLET (FP) PO SCH (10:08)
[2017-04-01] MEDS: HYDROCHLOROTHIAZIDE 25 MG TABLET (FP) PO SCH (10:08)
[2017-04-01] MEDS: ENALAPRIL MALEATE 10 MG TABLET (FP) PO SCH (10:08)
[2017-04-01] MEDS: amLODIPine BESYLATE 5 MG TABLET (FP) PO SCH (10:08)
[2017-04-01] MEDS: CLOPIDOGREL BISULFATE 75 MG TABLET (FP) PO SCH (10:08)
[2017-04-01] MEDS: OLANZapine 5 MG TABLET PO SCH ×2 (10:09→21:38)
[2017-04-01] MEDS: LIDOCAINE 5% TOPICAL PATCH TP SCH (10:09)
[2017-04-01] MEDS: guaiFENesin/D-METHORPHAN HB 10 ML UNIT-DOSE CUPS PO PRN (10:10)
[2017-04-01] MEDS: P-EPHED 60MG/TRIPROLIDI 2.5MG TABLET PO PRN ×2 (10:10→21:40)
[2017-04-01] MEDS: OLANZapine 10 MG TABLET PO SCH (21:38)
[2017-04-01] MEDS: diphenhydrAMINE HCL 50 MG CAPSULE PO PRN (21:38)
[2017-04-01] MEDS: THIAMINE HCL 100 MG TABLET (FP) PO SCH (21:38)
[2017-04-02] MEDS: GABAPENTIN 100 MG CAPSULE (FP) PO SCH ×3 (06:11→21:28)
[2017-04-02] MEDS: PRENATAL VITAMINS W/ FOLIC ACID TABLET (FP) PO SCH (10:14)
[2017-04-02] MEDS: CLOPIDOGREL BISULFATE 75 MG TABLET (FP) PO SCH (10:14)
[2017-04-02] MEDS: HYDROCHLOROTHIAZIDE 25 MG TABLET (FP) PO SCH (10:14)
[2017-04-02] MEDS: LIDOCAINE 5% TOPICAL PATCH TP SCH (10:15)
[2017-04-02] MEDS: ENALAPRIL MALEATE 10 MG TABLET (FP) PO SCH (10:15)
[2017-04-02] MEDS: OLANZapine 5 MG TABLET PO SCH ×2 (10:15→21:28)
[2017-04-02] MEDS: amLODIPine BESYLATE 5 MG TABLET (FP) PO SCH (10:15)
[2017-04-02] MEDS: THIAMINE HCL 100 MG TABLET (FP) PO SCH (21:28)
[2017-04-02] MEDS: OLANZapine 10 MG TABLET PO SCH (21:28)
[2017-04-02] MEDS: diphenhydrAMINE HCL 50 MG CAPSULE PO PRN (21:28)
[2017-04-03] MEDS: GABAPENTIN 100 MG CAPSULE (FP) PO SCH ×3 (06:50→21:26)
[2017-04-03] MEDS: amLODIPine BESYLATE 5 MG TABLET (FP) PO SCH (10:07)
[2017-04-03] MEDS: PRENATAL VITAMINS W/ FOLIC ACID TABLET (FP) PO SCH (10:07)
[2017-04-03] MEDS: CLOPIDOGREL BISULFATE 75 MG TABLET (FP) PO SCH (10:07)
[2017-04-03] MEDS: HYDROCHLOROTHIAZIDE 25 MG TABLET (FP) PO SCH (10:07)
[2017-04-03] MEDS: OLANZapine 5 MG TABLET PO SCH ×2 (10:07→21:26)
[2017-04-03] MEDS: ENALAPRIL MALEATE 10 MG TABLET (FP) PO SCH (10:07)
[2017-04-03] MEDS: LIDOCAINE 5% TOPICAL PATCH TP SCH (10:08)
[2017-04-03] MEDS: THIAMINE HCL 100 MG TABLET (FP) PO SCH (21:25)
[2017-04-03] MEDS: OLANZapine 10 MG TABLET PO SCH (21:26)
[2017-04-03] MEDS: diphenhydrAMINE HCL 50 MG CAPSULE PO PRN (21:26)
[2017-04-04] MEDS: GABAPENTIN 100 MG CAPSULE (FP) PO SCH ×3 (06:32→21:22)
[2017-04-04] MEDS: PRENATAL VITAMINS W/ FOLIC ACID TABLET (FP) PO SCH (10:11)
[2017-04-04] MEDS: amLODIPine BESYLATE 5 MG TABLET (FP) PO SCH (10:11)
[2017-04-04] MEDS: OLANZapine 5 MG TABLET PO SCH ×2 (10:11→21:22)
[2017-04-04] MEDS: ENALAPRIL MALEATE 10 MG TABLET (FP) PO SCH (10:11)
[2017-04-04] MEDS: CLOPIDOGREL BISULFATE 75 MG TABLET (FP) PO SCH (10:11)
[2017-04-04] MEDS: HYDROCHLOROTHIAZIDE 25 MG TABLET (FP) PO SCH (10:11)
[2017-04-04] MEDS: LIDOCAINE 5% TOPICAL PATCH TP SCH (10:12)
[2017-04-04] MEDS: OLANZapine 10 MG TABLET PO SCH (21:21)
[2017-04-04] MEDS: THIAMINE HCL 100 MG TABLET (FP) PO SCH (21:22)
[2017-04-04] MEDS: diphenhydrAMINE HCL 50 MG CAPSULE PO PRN (21:22)
[2017-04-05] MEDS: GABAPENTIN 100 MG CAPSULE (FP) PO SCH ×3 (06:43→21:33)
[2017-04-05] MEDS: CLOPIDOGREL BISULFATE 75 MG TABLET (FP) PO SCH (10:07)
[2017-04-05] MEDS: PRENATAL VITAMINS W/ FOLIC ACID TABLET (FP) PO SCH (10:07)
[2017-04-05] MEDS: OLANZapine 5 MG TABLET PO SCH ×2 (10:07→21:33)
[2017-04-05] MEDS: amLODIPine BESYLATE 5 MG TABLET (FP) PO SCH (10:07)
[2017-04-05] MEDS: HYDROCHLOROTHIAZIDE 25 MG TABLET (FP) PO SCH (10:07)
[2017-04-05] MEDS: LIDOCAINE 5% TOPICAL PATCH TP SCH (10:08)
[2017-04-05] MEDS: ENALAPRIL MALEATE 10 MG TABLET (FP) PO SCH (11:00)
[2017-04-05] MEDS: MAG HYDROX/AL HYDROX/SIMETH 30 ML UNIT-DOSE CUP PO PRN ×2 (14:29→21:35)
[2017-04-05] MEDS: OLANZapine 10 MG TABLET PO SCH (21:33)
[2017-04-05] MEDS: THIAMINE HCL 100 MG TABLET (FP) PO SCH (21:33)
[2017-04-05] MEDS: diphenhydrAMINE HCL 50 MG CAPSULE PO PRN (21:34)
[2017-04-05] MEDS: GABAPENTIN 300 MG CAPSULE (FP) PO SCH (21:50)
[2017-04-06] MEDS: GABAPENTIN 300 MG CAPSULE (FP) PO SCH ×3 (06:07→21:34)
[2017-04-06] MEDS: ENALAPRIL MALEATE 10 MG TABLET (FP) PO SCH (10:20)
[2017-04-06] MEDS: HYDROCHLOROTHIAZIDE 25 MG TABLET (FP) PO SCH (10:20)
[2017-04-06] MEDS: amLODIPine BESYLATE 5 MG TABLET (FP) PO SCH (10:20)
[2017-04-06] MEDS: PRENATAL VITAMINS W/ FOLIC ACID TABLET (FP) PO SCH (10:20)
[2017-04-06] MEDS: OLANZapine 5 MG TABLET PO SCH ×2 (10:20→21:34)
[2017-04-06] MEDS: CLOPIDOGREL BISULFATE 75 MG TABLET (FP) PO SCH (10:20)
[2017-04-06] MEDS: LIDOCAINE 5% TOPICAL PATCH TP SCH (10:21)
[2017-04-06] MEDS: MAG HYDROX/AL HYDROX/SIMETH 30 ML UNIT-DOSE CUP PO PRN (15:16)
[2017-04-06] MEDS: THIAMINE HCL 100 MG TABLET (FP) PO SCH (21:35)
[2017-04-06] MEDS: OLANZapine 10 MG TABLET PO SCH (21:38)
[2017-04-07] MEDS: GABAPENTIN 300 MG CAPSULE (FP) PO SCH ×3 (06:04→21:33)
[2017-04-07] MEDS: LIDOCAINE 5% TOPICAL PATCH TP SCH (10:16)
[2017-04-07] MEDS: ENALAPRIL MALEATE 10 MG TABLET (FP) PO SCH (10:17)
[2017-04-07] MEDS: CLOPIDOGREL BISULFATE 75 MG TABLET (FP) PO SCH (10:17)
[2017-04-07] MEDS: PRENATAL VITAMINS W/ FOLIC ACID TABLET (FP) PO SCH (10:17)
[2017-04-07] MEDS: amLODIPine BESYLATE 5 MG TABLET (FP) PO SCH (10:17)
[2017-04-07] MEDS: OLANZapine 5 MG TABLET PO SCH ×2 (10:17→21:34)
[2017-04-07] MEDS: HYDROCHLOROTHIAZIDE 25 MG TABLET (FP) PO SCH (10:17)
[2017-04-07] MEDS: hydrOXYzine PAMOATE 50 MG CAPSULE (FP) PO PRN (10:18)
[2017-04-07] MEDS: MAG HYDROX/AL HYDROX/SIMETH 30 ML UNIT-DOSE CUP PO PRN (12:51)
[2017-04-07] MEDS: PANTOPRAZOLE 40 MG TABLET (FP) PO SCH (14:41)
[2017-04-07] MEDS: diphenhydrAMINE HCL 50 MG CAPSULE PO PRN (21:33)
[2017-04-07] MEDS: THIAMINE HCL 100 MG TABLET (FP) PO SCH (21:33)
[2017-04-07] MEDS: OLANZapine 10 MG TABLET PO SCH (21:34)
[2017-04-08] MEDS: GABAPENTIN 300 MG CAPSULE (FP) PO SCH ×3 (06:13→21:34)
[2017-04-08] MEDS: CLOPIDOGREL BISULFATE 75 MG TABLET (FP) PO SCH (10:22)
[2017-04-08] MEDS: ENALAPRIL MALEATE 10 MG TABLET (FP) PO SCH (10:22)
[2017-04-08] MEDS: amLODIPine BESYLATE 5 MG TABLET (FP) PO SCH (10:22)
[2017-04-08] MEDS: HYDROCHLOROTHIAZIDE 25 MG TABLET (FP) PO SCH (10:22)
[2017-04-08] MEDS: PANTOPRAZOLE 40 MG TABLET (FP) PO SCH (10:22)
[2017-04-08] MEDS: OLANZapine 5 MG TABLET PO SCH ×2 (10:23→21:34)
[2017-04-08] MEDS: PRENATAL VITAMINS W/ FOLIC ACID TABLET (FP) PO SCH (10:23)
[2017-04-08] MEDS: LIDOCAINE 5% TOPICAL PATCH TP SCH (10:24)
[2017-04-08] MEDS: OLANZapine 10 MG TABLET PO SCH (21:34)
[2017-04-08] MEDS: THIAMINE HCL 100 MG TABLET (FP) PO SCH (21:34)
[2017-04-08] MEDS: diphenhydrAMINE HCL 50 MG CAPSULE PO PRN (21:35)
[2017-04-09] MEDS: GABAPENTIN 300 MG CAPSULE (FP) PO SCH ×3 (06:33→21:29)
[2017-04-09] MEDS: amLODIPine BESYLATE 5 MG TABLET (FP) PO SCH (10:15)
[2017-04-09] MEDS: PRENATAL VITAMINS W/ FOLIC ACID TABLET (FP) PO SCH (10:15)
[2017-04-09] MEDS: PANTOPRAZOLE 40 MG TABLET (FP) PO SCH (10:15)
[2017-04-09] MEDS: CLOPIDOGREL BISULFATE 75 MG TABLET (FP) PO SCH (10:15)
[2017-04-09] MEDS: ENALAPRIL MALEATE 10 MG TABLET (FP) PO SCH (10:15)
[2017-04-09] MEDS: OLANZapine 5 MG TABLET PO SCH ×2 (10:16→21:29)
[2017-04-09] MEDS: LIDOCAINE 5% TOPICAL PATCH TP SCH (10:16)
[2017-04-09] MEDS: HYDROCHLOROTHIAZIDE 25 MG TABLET (FP) PO SCH (10:16)
[2017-04-09] MEDS: diphenhydrAMINE HCL 50 MG CAPSULE PO PRN (21:30)
[2017-04-09] MEDS: THIAMINE HCL 100 MG TABLET (FP) PO SCH (21:30)
[2017-04-09] MEDS: OLANZapine 10 MG TABLET PO SCH (21:30)
[2017-04-10] MEDS: hydrOXYzine PAMOATE 50 MG CAPSULE (FP) PO PRN (01:17)
[2017-04-10] MEDS: GABAPENTIN 300 MG CAPSULE (FP) PO SCH ×3 (06:07→21:33)
[2017-04-10] MEDS: PANTOPRAZOLE 40 MG TABLET (FP) PO SCH (10:10)
[2017-04-10] MEDS: PRENATAL VITAMINS W/ FOLIC ACID TABLET (FP) PO SCH (10:11)
[2017-04-10] MEDS: HYDROCHLOROTHIAZIDE 25 MG TABLET (FP) PO SCH (10:11)
[2017-04-10] MEDS: LIDOCAINE 5% TOPICAL PATCH TP SCH (10:11)
[2017-04-10] MEDS: CLOPIDOGREL BISULFATE 75 MG TABLET (FP) PO SCH (10:11)
[2017-04-10] MEDS: ENALAPRIL MALEATE 10 MG TABLET (FP) PO SCH (10:11)
[2017-04-10] MEDS: amLODIPine BESYLATE 5 MG TABLET (FP) PO SCH (10:12)
[2017-04-10] MEDS: OLANZapine 5 MG TABLET PO SCH ×2 (11:11→21:33)
[2017-04-10] MEDS: THIAMINE HCL 100 MG TABLET (FP) PO SCH (21:33)
[2017-04-10] MEDS: OLANZapine 10 MG TABLET PO SCH (21:33)
[2017-04-10] MEDS: diphenhydrAMINE HCL 50 MG CAPSULE PO PRN (21:34)
[2017-04-11] MEDS: diphenhydrAMINE HCL 50 MG CAPSULE PO PRN ×2 (00:18→21:32)
[2017-04-11] MEDS: GABAPENTIN 300 MG CAPSULE (FP) PO SCH ×3 (05:55→21:32)
[2017-04-11] MEDS: amLODIPine BESYLATE 5 MG TABLET (FP) PO SCH (10:02)
[2017-04-11] MEDS: ENALAPRIL MALEATE 10 MG TABLET (FP) PO SCH (10:02)
[2017-04-11] MEDS: PANTOPRAZOLE 40 MG TABLET (FP) PO SCH (10:02)
[2017-04-11] MEDS: CLOPIDOGREL BISULFATE 75 MG TABLET (FP) PO SCH (10:02)
[2017-04-11] MEDS: PRENATAL VITAMINS W/ FOLIC ACID TABLET (FP) PO SCH (10:02)
[2017-04-11] MEDS: OLANZapine 5 MG TABLET PO SCH ×2 (10:02→21:32)
[2017-04-11] MEDS: HYDROCHLOROTHIAZIDE 25 MG TABLET (FP) PO SCH (10:03)
[2017-04-11] MEDS: hydrOXYzine PAMOATE 50 MG CAPSULE (FP) PO PRN (10:03)
[2017-04-11] MEDS: LIDOCAINE 5% TOPICAL PATCH TP SCH (10:04)
[2017-04-11] MEDS: THIAMINE HCL 100 MG TABLET (FP) PO SCH (21:32)
[2017-04-11] MEDS: OLANZapine 10 MG TABLET PO SCH (21:32)
[2017-04-12] MEDS: GABAPENTIN 300 MG CAPSULE (FP) PO SCH (06:17)
[2017-04-12 07:36] VITALS: TEMP 98.2
--- NOTE | 2017-04-12 09:22 | PN ---
Psychiatric Progress Note Vital Signs: Vital Signs Period Temp Pulse Resp BP Sys/Hanson Pulse Ox Last 24 Hr 98.2 F 98-107 18-20 134-137/79-90 Date of Session: 04/12/17 Chief Complaint:: discharge visit HPI: Patient has addressed cocaine dependence comorbid Bipolar disorder. ROS: HTN, BA, H/O R eye cataract removal in November 2016, H/O Cholecystectomy,R knee replacement Current Medications: Active Medications Generic Name Dose Route Start Last Admin Trade Name Freq PRN Reason Stop Dose Admin Al Hydroxide/Mg Hydroxide 30 ml 03/16/17 19:25 04/07/17 12:51 Mylanta Oral Suspension - PO 30 ml Q6H PRN Administration DYSPEPSIA Albuterol Sulfate 2 puff 03/17/17 01:23 03/28/17 21:35 Ventolin Hfa Inhaler - IH 2 puff Q4H PRN Administration SHORT OF BREATH/WHEEZING Amlodipine Besylate 5 mg 03/16/17 21:30 04/11/17 10:02 Norvasc - PO 5 mg DAILY MARISSA Administration Bupropion HCl 150 mg 03/17/17 14:15 04/11/17 10:02 Wellbutrin Xl - PO 150 mg DAILY MARISSA Administration Clopidogrel Bisulfate 75 mg 03/16/17 21:30 04/11/17 10:02 Plavix - PO 75 mg DAILY MARISSA Administration Diphenhydramine HCl 50 mg 03/16/17 19:25 04/11/17 21:32 Benadryl - PO 50 mg HSMR1 PRN Administration INSOMNIA Enalapril Maleate 10 mg 03/16/17 21:30 04/11/17 10:02 Vasotec - PO 10 mg DAILY MARISSA Administration Eucalyptus/Menthol/Phenol/Sorbitol 1 each 03/16/17 19:25 Cepastat Lozenge - MM Q4H PRN SORE THROAT Gabapentin 300 mg 04/05/17 22:00 04/12/17 06:17 Neurontin - PO 300 mg TID MARISSA Administration Guaifenesin 10 ml 03/16/17 19:25 04/01/17 10:10 Robitussin Dm - PO 10 ml Q6H PRN Administration COUGH Hydrochlorothiazide 25 mg 03/16/17 21:30 04/11/17 10:03 Hctz - PO 25 mg DAILY MARISSA Administration Hydroxyzine Pamoate 50 mg 03/16/17 19:25 04/11/17 10:03 Vistaril - PO 50 mg Q4H PRN Administration AGITATION Lidocaine 2 patch 03/26/17 10:00 04/11/17 10:04 Lidoderm Patch - TP 2 patch DAILY MARISSA Administration Loperamide HCl 4 mg 03/16/17 19:25 Imodium - PO Q6H PRN DIARRHEA Magnesium Citrate 300 ml 03/16/17 19:25 Citroma - PO Q48H PRN CONSTIPATION Magnesium Hydroxide 30 ml 03/16/17 19:25 04/06/17 21:38 Milk Of Magnesia - PO 30 ml DAILY PRN Administration CONSTIPATION Olanzapine 5 mg 03/17/17 22:00 04/11/17 21:32 Zyprexa - PO 5 mg HS MARISSA Administration Olanzapine 5 mg 03/22/17 11:00 04/11/17 10:02 Zyprexa - PO 5 mg DAILY MARISSA Administration Olanzapine 10 mg 03/30/17 22:00 04/11/17 21:32 Zyprexa - PO 10 mg HS MARISSA Administration Pantoprazole Sodium 40 mg 04/07/17 14:15 04/11/17 10:02 Protonix - PO 40 mg DAILY MARISSA Administration Multivit/Folic Acid/Iron 1 tab 03/17/17 10:00 04/11/17 10:02 Vitamins (Sjr) - PO 1 tab DAILY MARISSA Administration Pseudoephedrine/Triprolidine 1 combo 03/16/17 19:25 04/01/17 21:40 Actifed - PO 1 combo TID PRN Administration NASAL CONGESTION Thiamine HCl 100 mg 03/16/17 22:00 04/11/17 21:32 Vitamin B1 - PO 100 mg HS MARISSA Administration Provider note:: Patient has completed this treatment and met his goals, will continue to address his issues at [facility] outpatient treatment program. Patient gained insigts into his addiction, using coping skills and utilize all supports available to prevent relapses. Patient respondedee well to medication management Zyprexa and Wellbutrin well tolaretd, he is less anxious and mood is stable, scripts provided for 30 days. He was educated on importance of maintaining sobriety and take his medications as directed. Supportive psychotherapy provided, patient is stable for discharge today. Total face to face time:: 20 Mental Status Exam - Mental Status Exam Alert and Oriented to: Time, Place, Person Cognitive Function: Good Patient Appearance: Well Groomed Mood: Hopeful Affect: Mood Congruent Patient Behavior: Cooperative Speech Pattern: Clear, Appropriate Voice Loudness: Normal Thought Process: Intact, Goal Oriented Thought Disorder: Not Present Hallucinations: Denies Suicidal Ideation: Denies Homicidal Ideation: Denies Insight/Judgement: Fair Sleep: Fair Appetite: Fair Muscle strength/Tone: Normal Gait/Station: Normal Psychiatric Treatment Plan - Problem List (4) Hypertension Qualifiers: Hypertension type: essential hypertension Qualified Code(s): I10 - Essential (primary) hypertension
[2017-04-12] MEDS: HYDROCHLOROTHIAZIDE 25 MG TABLET (FP) PO SCH (10:29)
[2017-04-12] MEDS: OLANZapine 5 MG TABLET PO SCH (10:29)
[2017-04-12] MEDS: amLODIPine BESYLATE 5 MG TABLET (FP) PO SCH (10:29)
[2017-04-12] MEDS: PANTOPRAZOLE 40 MG TABLET (FP) PO SCH (10:29)
[2017-04-12] MEDS: PRENATAL VITAMINS W/ FOLIC ACID TABLET (FP) PO SCH (10:29)
[2017-04-12] MEDS: ENALAPRIL MALEATE 10 MG TABLET (FP) PO SCH (10:29)
[2017-04-12] MEDS: CLOPIDOGREL BISULFATE 75 MG TABLET (FP) PO SCH (10:29)
[2017-04-12] MEDS: LIDOCAINE 5% TOPICAL PATCH TP SCH (10:30)
[2017-04-12 11:40] VITALS: BP 139/97; PULSE 111
== END 2017-04-12 12:23 | disposition home or self-care (01) | DRG 772 ==
LOC: YASAS 16:23 → Y5N 19:02
PROVIDERS: ADMIT Psychiatry & Neurology Psychiatry; ATTEND Psychiatry & Neurology Psychiatry
PROC: HZ42ZZZ Group Counseling for Substance Abuse Treatment, Cognitive-Behavioral (ICD-10-PCS; principal; 2017-03-16)
DX: F14.20 Cocaine dependence, uncomplicated (principal); F31.9 Bipolar disorder, unspecified; I10 Essential (primary) hypertension; J45.909 Unspecified asthma, uncomplicated; E87.6 Hypokalemia; Z96.651 Presence of right artificial knee joint; Z88.6 Allergy status to analgesic agent; Z91.5 Personal history of self-harm; E66.9 Obesity, unspecified; Z68.41 Body mass index [BMI] 40.0-44.9, adult; I74.8 Embolism and thrombosis of other arteries
CPT/HCPCS: 36415; 71020-TC; 80053; 81003; 85027; 85610; 86593; 93005; 93010